=== PATIENT | female | born 1935 | race Caucasian/White ===

== ENCOUNTER 2017-05-26 10:57 | Outpatient (CLI) | payer MEDICARE | END 2017-05-26 10:58 | disposition home or self-care (01) | LOC: DI 10:57 | PROVIDERS: ATTEND Internal Medicine Cardiovascular Disease | DX: I44.7 Left bundle-branch block, unspecified (principal) | CPT/HCPCS: 93306 ==

== ENCOUNTER 2018-03-19 11:20 | Outpatient (CLI) | payer MEDICARE, BC ==
[2018-03-19 17:21] LABS: HGB - HEMOGLOBIN 12.5 g/dL (12.0-16.0); MEAN CORPUSCULAR HEMOGLOBIN 31.4 pg (27.0-31.0); MEAN CORPUSCULAR HGB CONC 33.6 g/dL (32.0-36.0); MEAN CORPUSCULAR VOLUME 93.4 fL (81.0-99.0); MEAN PLATELET VOLUME 7.4 fL (7.9-10.8); RED BLOOD COUNT 3.98 10^6/uL (4.20-5.40); RED CELL DISTRIBUTION WIDTH 13.2 % (12.0-15.0); WHITE BLOOD COUNT 5.3 x10^3/uL (4.8-10.8)
[2018-03-19 17:36] LABS: ALBUMIN 4.1 g/dL (3.2-5.5); ALBUMIN/GLOBULIN RATIO 1.3 (1.0-2.2); ALKALINE PHOSPHATASE 27 IU/L (42-121); ALT ALANINE AMINOTRANSFERASE 17 IU/L (10-60); AST ASPARTATE AMINOTRANSFERASE 27 IU/L (10-42); BILIRUBIN,TOTAL 0.4 mg/dL (0.2-1.0); BUN - BLOOD UREA NITROGEN 13 mg/dL (6-20); CALCIUM 9.5 mg/dL (8.5-10.3); CARBON DIOXIDE - CO2 28 mmol/L (21-32); CHLORIDE 95 mmol/L (101-111); CHOLESTEROL 237 mg/dL; CK- CREATINE KINASE 357 IU/L (22-269); CREATININE 0.8 mg/dL (0.4-1.0); GFR - MDRD 69 (>89); GLUCOSE 109 mg/dL (70-100); HDL CHOLESTEROL 81 mg/dL; LDL CHOLESTEROL,CALCULATED 133 mg/dL; LDL/HDL RATIO 1.6 (<4.4); MAGNESIUM 1.6 mg/dL (1.7-2.8); SODIUM 129 mmol/L (135-145); TOTAL PROTEIN 7.2 g/dL (6.7-8.2); VLDL CHOLESTEROL 23 mg/dL
[2018-03-19 17:37] LABS: CHOL/HDL RATIO 2.9 (<4.4); HEMOGLOBIN A1C 0.54 g/dL
[2018-03-19 17:41] LABS: CREATININE,URINE 51.6 mg/dL
== END 2018-03-19 11:21 | disposition home or self-care (01) ==
LOC: LAB.F 11:20
PROVIDERS: ATTEND Nurse Practitioner
DX: E11.9 Type 2 diabetes mellitus without complications (principal); E78.4 Other hyperlipidemia; R70.0 Elevated erythrocyte sedimentation rate; R74.8 Abnormal levels of other serum enzymes; R25.2 Cramp and spasm
CPT/HCPCS: 36415; 80053; 80061; 82043; 82550; 82570; 82607; 83036; 83721; 83735; 85027; 85651

== ENCOUNTER 2018-05-19 14:39 | Outpatient (CLI) | payer MEDICARE, BC | END 2018-05-19 14:40 | disposition home or self-care (01) | LOC: LAB.F 14:39 | PROVIDERS: ATTEND Nurse Practitioner | DX: E87.1 Hypo-osmolality and hyponatremia (principal) | CPT/HCPCS: 36415; 84295 ==

== ENCOUNTER 2022-04-02 14:37 | Outpatient (CLI) | payer MEDICARE, BC ==
[2022-04-02 20:08] LABS: BASOPHILS # (AUTO) 0.1 10^3/uL (0.0-0.1); BASOPHILS % (AUTO) 1.6 %; EOSINOPHILS # (AUTO) 0.4 10^3/uL (0.0-0.7); EOSINOPHILS % (AUTO) 6.9 %; HCT - HEMATOCRIT 35.5 % (37.0-47.0); HGB - HEMOGLOBIN 11.9 g/dL (12.0-16.0); LYMPHOCYTES % (AUTO) 36.9 %; MEAN CORPUSCULAR HEMOGLOBIN 32.3 pg (27.0-31.0); MEAN CORPUSCULAR HGB CONC 33.5 g/dL (32.0-36.0); MEAN CORPUSCULAR VOLUME 96.5 fL (81.0-99.0); MEAN PLATELET VOLUME 9.4 fL (7.9-10.8); MONOCYTES # (AUTO) 0.6 10^3/uL (0.0-1.0); MONOCYTES % (AUTO) 11.2 %; NEUTROPHILS # (AUTO) 2.4 10^3/uL (1.5-6.6); PLT - PLATELET COUNT 252 10^3/uL (130-450); RED BLOOD COUNT 3.68 10^6/uL (4.20-5.40); RED CELL DISTRIBUTION WIDTH 12.8 % (12.0-15.0); WHITE BLOOD COUNT 5.5 x10^3/uL (4.8-10.8)
[2022-04-02 20:15] LABS: ALBUMIN 4.1 g/dL (3.2-5.5); ALBUMIN/GLOBULIN RATIO 1.4 (1.0-2.2); BILIRUBIN,TOTAL 0.4 mg/dL (0.2-1.0); CALCIUM 9.4 mg/dL (8.5-10.3); CREATININE 0.8 mg/dL (0.4-1.0); POTASSIUM 4.2 mmol/L (3.5-5.0); TOTAL PROTEIN 7.1 g/dL (6.7-8.2)
[2022-04-02 20:31] LABS: THYROID STIMULATING HORMONE 1.28 uIU/mL (0.34-5.60)
== END 2022-04-02 14:38 | disposition home or self-care (01) ==
LOC: LAB.S 14:37
PROVIDERS: ATTEND Nurse Practitioner
DX: R53.83 Other fatigue (principal)
CPT/HCPCS: 36415; 80053; 82306; 82607; 84443; 85025

== ENCOUNTER 2022-05-10 18:40 | Emergency (ER) | payer MEDICARE, BC ==
[2022-05-10 19:25] LABS: BASOPHILS % (AUTO) 0.5 %; EOSINOPHILS % (AUTO) 0.3 %; HCT - HEMATOCRIT 34.9 % (37.0-47.0); HGB - HEMOGLOBIN 12.2 g/dL (12.0-16.0); LYMPHOCYTES # (AUTO) 0.8 10^3/uL (1.5-3.5); LYMPHOCYTES % (AUTO) 10.8 %; MEAN CORPUSCULAR HEMOGLOBIN 32.4 pg (27.0-31.0); MEAN CORPUSCULAR VOLUME 92.8 fL (81.0-99.0); MEAN PLATELET VOLUME 8.9 fL (7.9-10.8); MONOCYTES # (AUTO) 0.4 10^3/uL (0.0-1.0); MONOCYTES % (AUTO) 5.7 %; NEUTROPHILS % (AUTO) 82.3 %; PLT - PLATELET COUNT 252 10^3/uL (130-450); RED BLOOD COUNT 3.76 10^6/uL (4.20-5.40); RED CELL DISTRIBUTION WIDTH 12.9 % (12.0-15.0); WHITE BLOOD COUNT 7.3 x10^3/uL (4.8-10.8)
[2022-05-10 19:34] LABS: ALBUMIN 4.7 g/dL (3.2-5.5); ALBUMIN/GLOBULIN RATIO 1.5 (1.0-2.2); BILIRUBIN,TOTAL 1.1 mg/dL (0.2-1.0); CALCIUM 9.7 mg/dL (8.5-10.3); CREATININE 0.7 mg/dL (0.4-1.0); POTASSIUM 3.8 mmol/L (3.5-5.0); TOTAL PROTEIN 7.8 g/dL (6.7-8.2)
--- NOTE | 2022-05-10 19:48 | ED Physician Documentation ---
PD HPI ABD PAIN - Stated complaint Stated Complaint: CONSTIPATED/VOMITING - Chief complaint Chief Complaint: Abd Pain - History obtained from History obtained from: Patient, Family - Additional information Additional information: 86-year-old woman presents with a friend by private vehicle for evaluation of abdominal pain and constipation. She has a history of hypertension and remote cholecystectomy. She has not had a good bowel movement in several days despite taking senna and Dulcolax. She complains of diffuse abdominal pain and had vomiting today. Review of Systems Ten Systems: 10 systems reviewed and negative Constitutional: denies: Fever, Chills Cardiac: reports: Reviewed and negative Respiratory: reports: Reviewed and negative PD PAST MEDICAL HISTORY - Present Medications Home Medications: Ambulatory Orders Medication Instructions Recorded Confirmed Amox/Clav 875/125 [Augmentin] 1 each PO Q12H #14 tablet 05/10/22 - Allergies Allergies/Adverse Reactions: Allergies Allergy/AdvReac Type Severity Reaction Status Date / Time ciprofloxacin [From Cipro] Allergy Unknown Verified 05/10/22 19:00 lisinopril Allergy Unknown Verified 05/10/22 19:00 PD ED PE NORMAL - Vitals Vital signs reviewed: Yes - General General: Alert and oriented X 3, No acute distress - HEENT HEENT: PERRL, EOMI - Neck Neck: Supple, no meningeal sign, No bony TTP - Cardiac Cardiac: RRR, No murmur - Respiratory Respiratory: No respiratory distress, Clear bilaterally - Abdomen Abdomen: Normal bowel sounds, Soft, Other (Slightly hyperactive bowel tones, soft and nontender but potentially slightly distended with stool.) - Rectal Rectal: Other (Rectal exam done with Casie BEST present and chaperoning, no stool in the vault. She has some small recently active hemorrhoids from straining.) - Back Back: No CVA TTP, No spinal TTP - Derm Derm: Normal color, Warm and dry - Extremities Extremities: No edema, No calf tenderness / cord - Neuro Neuro: Other (Mild confusion, seems to lean on her friends for history.) - Psych Psych: Normal mood, Normal affect Results - Vitals Vitals: Vital Signs - 24 hr 05/10/22 05/10/22 05/10/22 18:52 23:37 23:50 Temperature 36.3 C L 36.9 C Heart Rate 90 94 89 Respiratory 16 18 18 Rate Blood Pressure 181/87 H 168/98 H 168/98 H O2 Saturation 97 100 100 10/07/22 23:55 Temperature Heart Rate Respiratory Rate Blood Pressure 168/98 H O2 Saturation Oxygen O2 Source Room air - Labs Labs: Laboratory Tests 05/10/22 05/10/22 05/10/22 19:17 19:17 21:22 WBC 7.3 RBC 3.76 L Hgb 12.2 Hct 34.9 L MCV 92.8 MCH 32.4 H MCHC 35.0 RDW 12.9 Plt Count 252 MPV 8.9 Neut # (Auto) 6.0 Lymph # (Auto) 0.8 L [place] # (Auto) 0.4 Eos # (Auto) 0.0 Baso # (Auto) 0.0 Absolute Nucleated RBC 0.00 Nucleated RBC % 0.0 Sodium 127 L Potassium 3.8 Chloride 90 L Carbon Dioxide 26 Anion Gap 11.0 BUN 11 Creatinine 0.7 Estimated GFR (MDRD) 80 L Glucose 155 H Calcium 9.7 Total Bilirubin 1.1 H AST 36 ALT 31 Alkaline Phosphatase 32 L Total Protein 7.8 Albumin 4.7 Globulin 3.1 Albumin/Globulin Ratio 1.5 Lipase 23 Urine Color LT. YELLOW Urine Clarity HAZY Urine pH 6.0 Ur Specific [place] 1.010 Urine Protein 100 H Urine Glucose (UA) NEGATIVE Urine Ketones TRACE Urine Occult Blood SMALL H Urine Nitrite NEGATIVE Urine Bilirubin NEGATIVE Urine Urobilinogen 0.2 (NORMAL) Ur Leukocyte Esterase NEGATIVE Urine RBC 0-5 Urine WBC 0-3 Ur Squamous Epith Cells FEW Squamous Urine Bacteria None Seen Ur Microscopic Review INDICATED Urine Culture Comments NOT INDICATED PD MEDICAL DECISION MAKING - ED course ED course: 86yo female presents for constipation/abd pain. No fecal impaction on exam. Care to Dr Barton at shift change pending imaging. Departure - Departure Disposition: 01 Home, Self Care Clinical Impression: Infectious colitis, Neoplasm, bladder Condition: Stable Instructions: ED Gastroenteritis Bacterial, ED Tumor [facility] Follow-Up: Sanjana Guido NP [Primary Care Provider] - Prescriptions: Amox/Clav 875/125 [Augmentin] 1 each PO Q12H #14 tablet Comments: Mamta today there is no evidence of constipation on your CT scan there are some areas of your colon that look like there is a bacterial infection in the wall of the colon. The recommendation is to take an antibiotic twice per day and the expectation is improvement in your symptoms relatively quickly. Within several days. In addition there is a finding on your CAT scan concerning for the possibility of a bladder tumor. A follow-up with a urologist is recommended and my recommendation is to call your primary care doctor this week to get a referral to the urologist. Discharge Date/Time: 05/11/22 00:04
[2022-05-10] MEDS ORDERED: SODIUM CHLORIDE 0.9% 1,000 ML IV STA (19:52)
[2022-05-10] MEDS ORDERED: iohexoL-300 100 ML VIAL ONE (20:11)
[2022-05-10] MEDS ORDERED: iohexoL-300 100 ML VIAL IVP ONE (21:20)
[2022-05-10 21:36] LABS: BILIRUBIN,URINE NEGATIVE (NEGATIVE); GLUCOSE, URINE (UA) NEGATIVE (NEGATIVE); KETONES,URINE (UA) TRACE mg/dL (NEGATIVE); LEUKOCYTE ESTERASE, URINE NEGATIVE (NEGATIVE); NITRITE,URINE NEGATIVE (NEGATIVE); OCCULT BLOOD,URINE SMALL (NEGATIVE); PROTEIN,URINE 100 mg/dL (NEGATIVE); UROBILINOGEN,URINE 0.2 (NORMAL) E.U./dL (NORMAL)
[2022-05-10 21:40] LABS: CLARITY,URINE HAZY (CLEAR)
[2022-05-10 21:50] LABS: RBC,URINE 0-5 /HPF (0-5); SQUAMOUS EPITHELIAL CELL,UR FEW Squamous (<= Few); WBC,URINE 0-3 /HPF (0-5)
[2022-05-10 21:51] LABS: BACTERIA,URINE None Seen /HPF (None Seen)
--- NOTE | 2022-05-10 22:24 | CT Report ---
PROCEDURE: Abdomen/Pelvis W INDICATIONS: abd pain CONTRAST: IV CONTRAST: Isovue 300 ml: 100 PO CONTRAST: *NO PO CONTRAST TECHNIQUE: After the administration of intravenous contrast, 5 mm thick sections acquired from the diaphragms to the symphysis. 5 mm thick coronal and sagittal reformats were acquired. For radiation dose reducti on, the following was used: automated exposure control, adjustment of mA and/or kV according to pema ent size. COMPARISON: None. FINDINGS: Image quality: Excellent. Lung bases:There is mild dependent atelectasis and scarring bilaterally.A small right fat-containin g posterior diaphragmatic hernia is noted. Heart: Heart is normal in size. There is prominent mitral annular calcification. There is a small hi atal hernia. ABDOMEN: Liver: No mass lesion. There is diffuse hypoattenuation of the liver consistent with fatty infiltrat ion. Gallbladder:Surgically absent. Biliary ducts: No biliary ductal dilatation. Pancreas: Unremarkable. Spleen: Normal in size. Adrenal Glands: No adrenal nodules. Kidneys and Ureters: No hydronephrosis. Stomach and Bowel: Stomach and small bowel loops are normal in caliber and wall thickness. No perice vanna inflammatory changes to suggest acute appendicitis. There are a few segments of mild colonic wall thickening throughout the colon suggestive of a mild colitis. Colonic diverticulosis is present with out acute diverticulitis. Peritoneum: No abnormal intraperitoneal fluid. No free air. Ventral Wall: No hernia. Abdominal Nodes: No retroperitoneal or mesenteric adenopathy by size criteria. Vessels: Aorta and inferior vena cava are normal in size. PELVIS: Pelvic Organs:Uterus is surgically absent. Bladder:There is mild eccentric wall thickening within the left posterior lateral aspect of the blad zena. Pelvic Nodes: No enlarged lymph nodes. Miscellaneous: No inguinal hernias are seen. Bones: Visualized osseous structures demonstrate no suspicious focal lesions. There is extensive mul tilevel degenerative disc disease throughout the lumbar spine as well as facet joint arthropathy in t he mid and lower lumbar spine. Anterolisthesis at L4-5 measuring up to 0.6 cm demonstrated. There is anterolisthesis at L5-S1 also measuring 0.6 cm. Minimal multilevel retrolisthesis demonstrated within the upper lumbar spine at L1-L2, L2-L3, and L3-L4. IMPRESSION: 1. Multiple segments of mild colonic wall thickening suggestive of a mild infectious or inflammatory colitis. 2. Eccentric wall thickening within the left posterior lateral aspect of the bladder. Intraluminal ma ss lesion such as transitional cell carcinoma cannot be excluded. Consider further evaluation with cy stoscopy when clinically feasible. Reviewed by: Clyde Watts MD on 05/10/2022 10:23 PM PDT Approved by: Clyde Watts MD on 05/10/2022 10:23 PM PDT Station ID: [id number]
[2022-05-10] MEDS ORDERED: AMOX/CLAV 875 MG/125 MG TABLET PO STA (23:20)
--- NOTE | 2022-05-10 23:34 | ED Physician Documentation ---
ED Addendum - Addendum Addendum: 05/10/22 23:30 Check some 86-year-old Mamta William has come to the emergency department feeling that she was constipated. She was worked up by Dr. Tejada and a CT scan of the abdomen and pelvis was undertaken without evidence of constipation. There is some focal colitis consistent with infection and she is treated with augmentin. There are incidental findings in the scan consistent with the possibility of tumor in the bladder and not likely related to the presenting symptoms. The patient and her daughter are given recommendations to follow up with urology for evaluation of potential bladder tumor. 05/10/22 23:39 Impression: Infectious colitis, bladder tumor. Disposition: Patient disposition to home with a prescription for Augmentin and a recommendation to follow-up with urology.
[2022-05-10 23:38] VITALS: BP 168/98
== END 2022-05-11 00:04 | disposition home or self-care (01) ==
LOC: ED 18:40
DX: A09 Infectious gastroenteritis and colitis, unspecified (principal); D49.4 Neoplasm of unspecified behavior of bladder; K64.9 Unspecified hemorrhoids; I10 Essential (primary) hypertension; Z90.49 Acquired absence of other specified parts of digestive tract
CPT/HCPCS: 36415; 74177; 80053; 81001; 83690; 85025; 99283; 99284; A9270; Q9967; 81003; 87086

== ENCOUNTER 2022-12-27 06:35 | Emergency (ER) | payer MEDICARE, BC ==
--- NOTE | 2022-12-27 07:31 | ED Physician Documentation ---
PD HPI HEAD INJURY - Stated complaint Stated Complaint: GLF/HEAD INJ - Chief complaint Chief Complaint: Trauma Hd/Nk - History obtained from History obtained from: Patient, Family - Additional information Additional information: The patient is brought to the emergency department by her daughter for chief complaint of facial injury after a fall. The patient was using the toilet this morning and attempted to stand up but lost her balance and fell forward, hitting her face on the tile. She has a large periorbital contusion around her left eye. She also tore some skin on the dorsum of her right hand. The daughter states that initially, the patient is able to open her eye but that it is gotten more swollen since the incident happened. This happened this morning around 6:00. The patient denies any loss of consciousness. She is not on any anticoagulation. She was not injured in any other way. She has been ambulatory at her usual baseline level and denies any spinal pain at any level. No rib pain. No abdominal pain. No shortness of breath. The patient states that when she opens her eyes, her vision seems normal in the eye. PD PAST MEDICAL HISTORY - Past Medical History Past Medical History: Yes - Present Medications Home Medications: Ambulatory Orders Medication Instructions Recorded Confirmed Amox/Clav 875/125 [Augmentin] 1 each PO Q12H #14 tablet 05/10/22 - Allergies Allergies/Adverse Reactions: Allergies Allergy/AdvReac Type Severity Reaction Status Date / Time ciprofloxacin [From Cipro] Allergy Unknown Verified 05/10/22 19:00 lisinopril Allergy Unknown Verified 05/10/22 19:00 - Social History Does the pt smoke?: No Smoking Status: Never smoker Does the pt drink ETOH?: No Does the pt have substance abuse?: No - Immunizations Immunizations are current?: Yes - POLST Patient has POLST: No PD ED PE NORMAL - Vitals Vital signs reviewed: Yes - General General: Alert and oriented X 3, No acute distress, Well developed/nourished - HEENT HEENT: PERRL, EOMI (Normal eye exam without any evidence of trauma to the orbit itself. No hyphema, subconjunctival hemorrhage, or pupillary irregularity.), Moist mucous membranes, Other (Periorbital contusion on the left with moderate edema. Skin tear noted inferolaterally.) - Neck Neck: Supple, no meningeal sign, No bony TTP - Cardiac Cardiac: RRR, No murmur - Respiratory Respiratory: No respiratory distress, Clear bilaterally - Abdomen Abdomen: Soft, Non tender, Non distended - Back Back: No spinal TTP - Derm Derm: Normal color, Warm and dry, No rash, Other (2 cm skin tear over dorsum of right hand.) - Extremities Extremities: No deformity, No tenderness to palpate, Normal ROM s pain, Other (No evidence of orthopedic injury.) - Neuro Neuro: Alert and oriented X 3 - Psych Psych: Normal mood, Normal affect Results - Vitals Vitals: Oxygen O2 Source Room air - Rads (name of study) Maxillofacial CT Relevant Findings:: Final report received, See rad report (No acute findings) CT head Relevant Findings:: Final report received, See rad report (Small right frontoparietal subdural hematoma with tiny bit of subarachnoid hemorrhage. No midline shift or mass effect) CT head #2 Relevant Findings:: Final report received, See rad report (Stable findings with regard to intracranial hemorrhage.) PD Medical Decision Making - ED course Complexity details: reviewed results, re-evaluated patient, considered differential, d/w patient, d/w family ED course: The patient was worked up with CTs of the head and face. Her wounds were cleaned and dressed. The CT of the face showed soft tissue swelling only but the CT head showed a tiny subdural and subarachnoid bleed on the right frontoparietal area. There is no midline shift, and I suspected a contrecoup lesion but I did speak with [facility] neurosurgeon Dr. oJhnson to determine management plan for this patient. She had been in the operating room for some hours prior to our conversation so at the time of my conversation with her, the patient had been in the ED for 6 hours and had been without complaints or deterioration. She was still awake, alert, and at baseline, and had been able to ambulate to the bathroom a few times on her daughter's arm. Dr. Johnson did state that the patient could have a repeat CT at this time and if it was stable, she felt the patient could be discharged home. The repeat CT showed no significant change and was stable, and felt patient was stable for discharge home. The patient was doing well and I discussed with the patient and her daughter the usual indications for return, as well as symptomatic management at home. Departure - Departure Disposition: 01 Home, Self Care Clinical Impression: Subdural hematoma, Skin avulsion Closed head injury Qualifiers: Encounter type: initial encounter Qualified Code(s): S09.90XA - Unspecified injury of head, initial encounter Periorbital contusion of left eye Qualifiers: Encounter type: initial encounter Qualified Code(s): S05.12XA - Contusion of eyeball and orbital tissues, left eye, initial encounter Condition: Stable Instructions: Black Eye, Hematoma Subdural, ED Head Injury Closed Comments: CT scans were performed of both your face and head today. Your facial CT did not show any breaks in your facial bones or other serious injuries to your face. Your head CT showed a small subdural hematoma, which is a blood collection beneath one of the layers of tissue between your brain and skull. As such, you were observed in the emergency department for an extended period of time while your case was discussed with the on-call neurosurgeon at [facility], Dr. Johnson. She reviewed your images and felt that if your repeat CT at 6 hours was unchanged, that the bleeding was unlikely to worsen and you could be discharged home. Your repeat CT has been reviewed by the radiologist and is completely stable and unchanged since the first one. You have not developed any worsening neurologic symptoms and have been able to walk about the department while you have been here. As such, at this point you are felt stable for discharge home. You may follow-up with your primary doctor as needed. As far as your facial bruising, this will go away, given time. You may continue to ice the area and you may apply antibiotic ointment to the areas of skin tear on your face and hands. Please follow-up with your primary doctor as needed. If you develop severe headache, feel unbalanced or incoordinated in a way that is significantly worse than usual, or develop any other concerning neurologic symptoms, please return to the emergency department immediately. Discharge Date/Time: 12/27/22 13:50
[2022-12-27] MEDS ORDERED: BACITRACIN ZINC OINT 1 PACKET TOP STA (08:00)
--- NOTE | 2022-12-27 08:07 | CT Report ---
PROCEDURE: MAXILLOFACIAL WO INDICATIONS: fall/injury to L periorbital area TECHNIQUE: Noncontrast 1.5 mm thick axial images acquired from the mandible through the frontal sinuses, with co edilma and sagittal reformatting. For radiation dose reduction, the following was used: automated ex posure control, adjustment of mA and/or kV according to patient size. COMPARISON: None. FINDINGS: Image quality: Excellent. Bones and teeth: Orbital mondragon are intact. Sinus mondragon show no fracture or deformity. Nasal bones and septum are intact. Visualized portions of the mandible demonstrate no fractures or subluxation. Zygomatic arches are intact. Pterygoid plates are intact. Visualized portions of the skull base an d auditory canals are intact. Sinuses: Paranasal sinuses are aerated, without fluid levels, mucosal thickening, or mucoceles. Mas toid air cells are aerated. Soft tissues: Left periorbital edema and supraorbital subcutaneous hematoma. All findings at the lev el of the orbit are extraconal. The left globe is intact. No masses. No enlarged lymph nodes. No sof t tissue lacerations or debris. Vascular: Visualized vascular structures appear normal in the absence of contrast. Bony vascular fo ramina and canals are intact. IMPRESSION: 1. Left periorbital hematoma and supraorbital subcutaneous hematoma. 2. Left globe and orbit intact. 3. No displaced facial bone fracture or mandibular fracture. Reviewed by: Isaiah Dsouza MD on 12/27/2022 8:06 AM PDT Approved by: Isaiah Dsouza MD on 12/27/2022 8:06 AM PDT Station ID: [id number]
--- NOTE | 2022-12-27 08:07 | CT Report ---
PROCEDURE: HEAD WO INDICATIONS: head injury TECHNIQUE: Noncontrast 4.5 mm thick angled axial sections acquired from the foramen magnum to the vertex. For r adiation dose reduction, the following was used: automated exposure control, adjustment of mA and/or kV according to patient size. COMPARISON: None. FINDINGS: Image quality: Excellent. CSF spaces: Basal cisterns are patent. There is a small acute subdural hematoma in the right frontop arietal area measuring up to 6 mm. Trace subarachnoid blood is present in the adjacent brain. Ventri cles are normal in size and shape. Brain: No midline shift. No intracranial masses or hemorrhage. Davila-white matter interface is norm al. Skull and face: Calvarium and visualized facial bones are intact, without suspicious lesions. Left frontal/periorbital soft tissue contusion and subscapular hematoma. Sinuses: Visualized sinuses and mastoids are clear. IMPRESSION: 1. Small acute right frontoparietal subdural hematoma and trace subacromial subarachnoid bleed. The result was discussed with Dr. Champagne. Reviewed by: Mojgan Travis MD on 12/27/2022 8:06 AM PDT Approved by: Mojgan Travis MD on 12/27/2022 8:06 AM PDT Station ID: [id number]
[2022-12-27 12:22] VITALS: BP 152/60
[2022-12-27] MEDS ORDERED: ACETAMINOPHEN 325 MG TABLET PO STA (13:17)
--- NOTE | 2022-12-27 13:17 | CT Report ---
PROCEDURE: HEAD WO INDICATIONS: intracranial hemorrhage TECHNIQUE: Noncontrast 4.5 mm thick angled axial sections acquired from the foramen magnum to the vertex. For r adiation dose reduction, the following was used: automated exposure control, adjustment of mA and/or kV according to patient size. COMPARISON: CT head 12/27/2022 at 7:46 AM. FINDINGS: Image quality: Excellent. Brain and CSF: Hyperdense extra-axial fluid collection is seen along the right frontal convexity stephan suring up to 6 mm in thickness, unchanged compared to the CT from earlier the same day. No definite s ubarachnoid blood products identified on this exam. There is no significant mass effect or midline sh ift. Ventricles are symmetric in size and shape. There is mild parenchymal volume loss for age. Hypod ensities in the subcortical and periventricular white matter as with chronic microvascular ischemic c hanges. Basal cisterns are patent. Skull and face: Calvarium and visualized facial bones are intact, without suspicious lesions. Multi level subcutaneous scalp hematoma again seen. Sinuses: Visualized sinuses and mastoids are clear. IMPRESSION: Right frontoparietal convexity hyperdense subdural hematoma appears unchanged in size when compared t o the CT from earlier the same day. No significant mass effect or midline shift. Previously described subarachnoid blood products are not seen on this exam. Reviewed by: John Vasquez MD on 12/27/2022 1:16 PM PDT Approved by: John Vasquez MD on 12/27/2022 1:16 PM PDT Station ID: [id number]
== END 2022-12-27 13:50 | disposition home or self-care (01) ==
LOC: ED 06:35
DX: S06.5X0A Traumatic subdural hemorrhage without loss of consciousness, initial encounter (principal); S05.12XA Contusion of eyeball and orbital tissues, left eye, initial encounter; W18.12XA Fall from or off toilet with subsequent striking against object, initial encounter; Y92.89 Other specified places as the place of occurrence of the external cause
CPT/HCPCS: 70450; 70486; 99283; 99284; A9270

== ENCOUNTER 2024-02-09 07:00 | Outpatient (CLI) | payer MEDICARE, BC ==
[2024-02-09 20:58] LABS: BILIRUBIN,URINE NEGATIVE (NEGATIVE); GLUCOSE, URINE (UA) NEGATIVE (NEGATIVE); KETONES,URINE (UA) NEGATIVE (NEGATIVE); LEUKOCYTE ESTERASE, URINE TRACE (NEGATIVE); NITRITE,URINE NEGATIVE (NEGATIVE); OCCULT BLOOD,URINE SMALL (NEGATIVE); PROTEIN,URINE 30 mg/dL (NEGATIVE); UROBILINOGEN,URINE 0.2 (NORMAL) E.U./dL (NORMAL)
[2024-02-09 21:13] LABS: CLARITY,URINE HAZY (CLEAR)
[2024-02-09 21:34] LABS: BACTERIA,URINE Few /HPF (None Seen); SQUAMOUS EPITHELIAL CELL,UR MOD Squamous (<= Few); WBC,URINE 0-3 /HPF (0-5)
== END 2024-02-09 23:59 | disposition home or self-care (01) ==
LOC: LAB.S 07:00
PROVIDERS: ATTEND Emergency Medicine
DX: G31.84 Mild cognitive impairment of uncertain or unknown etiology (principal)
CPT/HCPCS: 81001; 87086

== ENCOUNTER 2024-02-18 11:57 | Emergency (ER) | payer MEDICARE, BC ==
[2024-02-18 13:18] LABS: BILIRUBIN,URINE NEGATIVE (NEGATIVE); GLUCOSE, URINE (UA) NEGATIVE (NEGATIVE); KETONES,URINE (UA) NEGATIVE (NEGATIVE); LEUKOCYTE ESTERASE, URINE NEGATIVE (NEGATIVE); NITRITE,URINE NEGATIVE (NEGATIVE); OCCULT BLOOD,URINE NEGATIVE (NEGATIVE); PROTEIN,URINE 30 mg/dL (NEGATIVE); UROBILINOGEN,URINE 0.2 (NORMAL) E.U./dL (NORMAL)
[2024-02-18 13:19] LABS: CLARITY,URINE CLEAR (CLEAR)
[2024-02-18 13:34] LABS: RBC,URINE 0-5 /HPF (0-5); WBC,URINE 0-3 /HPF (0-5)
[2024-02-18 13:35] LABS: BACTERIA,URINE Rare /HPF (None Seen); SQUAMOUS EPITHELIAL CELL,UR FEW Squamous (<= Few)
--- NOTE | 2024-02-18 14:48 | ED Physician Documentation ---
PD HPI ALTERED MENTAL STATUS - Stated complaint Stated Complaint: UTI,DEMENTIA - Chief complaint Chief Complaint: Neuro - History obtained from History obtained from: Patient, Family (daughter) - Additional information Additional information: Here w daughter. Has fairly severe dementia. Last week with agitation/hallucintation, dx uti, finsihed ceftin ~48 hours ago. Last night w increased restless/wandering and hallucinations again. PD PAST MEDICAL HISTORY - Past Medical History Past Medical History: Yes Cardiovascular: Hypertension, Arrhythmia Respiratory: None Neuro: Dementia, Head injury Endocrine/Autoimmune: Type 2 diabetes GI: Diverticulitis CORPORATE LAW ASSISTANT: None : None HEENT: None Psych: Depression Musculoskeletal: Chronic back pain Derm: Eczema - Past Surgical History Past Surgical History: Yes General: Cholecystectomy /CORPORATE LAW ASSISTANT: Hysterectomy - Present Medications Home Medications: Ambulatory Orders Medication Instructions Recorded Confirmed Amox/Clav 875/125 [Augmentin] 1 each PO Q12H #14 tablet 05/10/22 QUEtiapine [SEROquel] 25 mg PO QPM PRN #60 tablet 02/18/24 - Allergies Allergies/Adverse Reactions: Allergies Allergy/AdvReac Type Severity Reaction Status Date / Time ciprofloxacin [From Cipro] Allergy Unknown Verified 02/18/24 12:22 lisinopril Allergy Unknown Verified 02/18/24 12:22 Sulfa (Sulfonamide Allergy Hives Verified 02/18/24 12:22 Antibiotics) - Social History Does the pt smoke?: No Smoking Status: Former smoker Does the pt drink ETOH?: No Does the pt have substance abuse?: No - Immunizations Immunizations are current?: Yes - POLST Patient has POLST: No PD ED PE NORMAL - Vitals Vital signs reviewed: Yes - General General: Other (a/o x 2) - HEENT HEENT: PERRL, EOMI - Neck Neck: Supple, no meningeal sign - 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 Eye Opening: Spontaneous Motor: Obeys Commands Verbal: Confused GCS Score: 14 Results - Vitals Vitals: Vital Signs - 24 hr 02/18/24 12:22 Temperature 36.1 C L Heart Rate 56 L Respiratory 16 Rate Blood Pressure 141/60 H O2 Saturation 100 Oxygen O2 Source Room air - Labs Labs: Laboratory Tests 02/18/24 12:54 Urine Color YELLOW Urine Clarity CLEAR Urine pH 6.0 Ur Specific [place] 1.020 Urine Protein 30 H Urine Glucose (UA) NEGATIVE Urine Ketones NEGATIVE Urine Occult Blood NEGATIVE Urine Nitrite NEGATIVE Urine Bilirubin NEGATIVE Urine Urobilinogen 0.2 (NORMAL) Ur Leukocyte Esterase NEGATIVE Urine RBC 0-5 Urine WBC 0-3 Ur Squamous Epith Cells FEW Squamous Urine Bacteria Rare Ur Microscopic Review INDICATED Urine Culture Comments NOT INDICATED PD Medical Decision Making - ED course ED course: ua now nl. Exam nl, cooperative now. Daughter agreeable to prn seroquel for dementia now w behavioral disturbance. Departure - Departure Disposition: Home, Self Care Clinical Impression: Dementia Qualifiers: Dementia type: unspecified type Dementia severity: severe Dementia behavioral or psychological symptom: with psychotic disturbance Qualified Code(s): F03.C2 - Unspecified dementia, severe, with psychotic disturbance Condition: Good Record reviewed to determine appropriate education?: Yes Instructions: ED Dementia Caregiver Support Prescriptions: QUEtiapine [SEROquel] 25 mg PO QPM PRN #60 tablet PRN Reason: Agitation Comments: I sent prescription to [facility]. Followup with Dr Valentine. Would start seroquel if she is having bad evenings, may end up needing nightly. Return if worse.
[2024-02-18 15:14] VITALS: BP 172/67; O2SAT 96
== END 2024-02-18 15:11 | disposition home or self-care (01) ==
LOC: ED 11:57
DX: F03.C2 Unspecified dementia, severe, with psychotic disturbance (principal); Z87.891 Personal history of nicotine dependence
CPT/HCPCS: 81001; 81003; 87086; 99283; 99284

== ENCOUNTER 2024-04-23 14:39 | Emergency (ER) | payer MEDICARE, BC ==
--- NOTE | 2024-04-23 14:57 | ED Physician Documentation ---
History of Present Illness - Stated complaint Stated Complaint: RT HIP PX - Chief complaint Chief Complaint: Back Pain - Additonal information Additional information: 88-year-old female with advanced dementia presents emergency department with her daughter who is an effort [place] hospitalist for concerns of increased agitation and difficulty managing pain at home. Patient's daughter has tried multiple times to reach out to her primary care provider for updated medications she has an intake appointment on Friday for hospice but feels like she is having a hard time managing her mother's symptoms until then. PD PAST MEDICAL HISTORY - Past Medical History Past Medical History: Yes Cardiovascular: Hypertension, Arrhythmia Respiratory: None Neuro: Dementia, Head injury Endocrine/Autoimmune: Type 2 diabetes GI: Diverticulitis SNAGGER: None : None HEENT: None Psych: Depression Musculoskeletal: Chronic back pain Derm: Eczema - Past Surgical History Past Surgical History: Yes General: Cholecystectomy /SNAGGER: Hysterectomy - Present Medications Home Medications: Ambulatory Orders Medication Instructions Recorded Confirmed Amox/Clav 875/125 [Augmentin] 1 each PO Q12H #14 tablet 05/10/22 QUEtiapine [SEROquel] 25 mg PO QPM PRN #60 tablet 02/18/24 oxyCODONE [Roxicodone] 5 - 10 mg PO Q4-6H PRN #30 tablet 04/23/24 - Allergies Allergies/Adverse Reactions: Allergies Allergy/AdvReac Type Severity Reaction Status Date / Time ciprofloxacin [From Cipro] Allergy Unknown Verified 04/23/24 14:44 lisinopril Allergy Unknown Verified 04/23/24 14:44 Sulfa (Sulfonamide Allergy Hives Verified 04/23/24 14:44 Antibiotics) - Social History Does the pt smoke?: No Smoking Status: Never smoker Does the pt drink ETOH?: No Does the pt have substance abuse?: No - Immunizations Immunizations are current?: Yes - POLST Patient has POLST: No PD ED PE NORMAL - Vitals Vital signs reviewed: Yes - General General: No acute distress, Well developed/nourished, Other (confused) - HEENT HEENT: Atraumatic - Back Back: No CVA TTP - Derm Derm: Normal color, Warm and dry, No rash Results - Vitals Vitals: Vital Signs - 24 hr 04/23/24 04/23/24 14:44 16:56 Temperature 36.8 C Heart Rate 68 65 Respiratory 16 65 H Rate Blood Pressure 178/76 H 218/99 H O2 Saturation 97 100 Oxygen O2 Source Room air PD Medical Decision Making - ED course ED course: 88-year-old female presents emergency department for worsening lower back pain recently had an MRI which showed spondylosis of the lumbar region. She has been transition to hospice or hospice nurse was able to come in and do the intake paperwork today and they will get her admitted on Friday and so all the referral paperwork was able to be completed here in the emergency department. A prescription of oxycodone was sent to patient's preferred pharmacy to help manage her chronic back pain until she is able to officially transition over to hospice and per the hospice physician who is on-call today is hospitalist they recommended prescribing Depakote sprinkles so a Depakote Sprinkle prescription was given to the patient as well. Return precautions given all questions answered patient is safe for discharge at this time. Departure - Departure Disposition: Home, Self Care Clinical Impression: Advancing dementia Lower back pain Qualifiers: Chronicity: acute Back pain laterality: midline Sciatica presence: without sciatica Qualified Code(s): M54.50 - Low back pain, unspecified Instructions: ED Confusion Prescriptions: oxyCODONE [Roxicodone] 5 - 10 mg PO Q4-6H PRN #30 tablet PRN Reason: Pain >8 Comments: Thank you for trusting us with your care. I have sent a prescription of Vicodin to your preferred pharmacy on file and send you home with a paper prescription of Depakote sprinkles because unfortunately we are unable to prescribe this medication. Please follow-up with hospice on Friday please come back to the ER if your mother is having any worsening symptoms or if feeling like you are having hard time managing her mom's pain and confusion at home. I am prescribing a short course of narcotic pain medication for you. These are potentially dangerous and addictive medications that should be used carefully. These medications may constipate you. Take an hbll-iht-ezuajph stool softener (docusate) twice daily with plenty of water while taking these medications. If you go 24 hours without a bowel movement, take khdl-syd-kfidbfs miralax, per package instructions. Do not drink or drive while taking these medications. If you received narcotic or sedating medications while in the emergency department, do not drive for 24 hours. Store this medication in a safe, secure place and out of reach of children. It is a violation of federal law to give or sell this medication to another person or to use in a manner other than prescribed. The ED will not refill narcotic prescriptions, including prescriptions lost or stolen. To dispose of unwanted medications: 1. [facility] [address] in [place] has a medication drop box. They accept prescription medications (in pill form) Friday through Friday 9:00 a.m. to 5:00 p.m. 2. [facility] [employer] [facility] accepts prescription medications (in pill form only) for disposal year round. Call for more information. 3. Contact the [facility] for the next [facility] sponsored prescription drug collection event. , x7558, or [phone]; Note that many narcotic pain relievers also contain Tylenol/acetaminophen. Please ensure that your total dose of acetaminophen from all sources does not exceed 3 g (3000 mg) per day. Discharge Date/Time: 04/23/24 16:56
[2024-04-23 17:05] VITALS: BP 218/99; O2SAT 100
== END 2024-04-23 16:56 | disposition home or self-care (01) ==
LOC: ED 14:39
DX: F03.911 Unspecified dementia, unspecified severity, with agitation (principal); M47.816 Spondylosis without myelopathy or radiculopathy, lumbar region
CPT/HCPCS: 99282; 99283